=== PATIENT | male | born 1995 | race Caucasian/White ===

== ENCOUNTER 2021-12-05 17:05 | Emergency (ER) | payer OTHER, MEDICAID, SELFPAY ==
[2021-12-05 17:26] VITALS: BP 146/79; PULSE 89; RESP 16; TEMP 36.4; O2SAT 96; BMI 21.1
--- NOTE | 2021-12-05 19:29 | ED_ITS ---
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 There is a small rock that bounced up and hit him just under the left eye. He did not think anything about it. Over the next 3 days he has developed increasing erythema around the left eye with drainage from the left eye as well as increasing pain and erythema around the left ear. Does have a distant history of MRSA infection over the right thigh that had been difficult to completely clear what has been completely resolved for an extended period of time. It was Septra that and that being most effective. He describes no fevers, cough, chills. He is having no hearing change, headaches, visual change. He does not notice any headaches, abdominal pain, vomiting, diarrhea. Related Data Previous Rx's Medication Instructions Recorded clindamycin HCl 300 mg capsule 300 mg PO TID #30 caps 12/05/21 sulfamethoxazole 800 1 tab PO BID #20 tabs 12/05/21 mg-trimethoprim 160 mg tablet (Bactrim DS) Allergies Allergy/AdvReac Type Severity Reaction Status Date / Time No Known Drug Allergies Allergy Verified 12/05/21 19:56 Review of Systems Review of Systems Narrative: Remainder of complete review of systems is otherwise unremarkable except for that included in the HPI. Patient History Social History Smoking Status: Current every day smoker Smoking Status: Current every day smoker alcohol intake frequency: holidays/special occasions only Substance Use Type: does not use Exam Initial Vital Signs Initial Vital Signs: Vital Signs Temperature 97.5 F L 12/05/21 17:26 Pulse Rate 89 12/05/21 17:26 Respiratory Rate 16 12/05/21 17:26 Blood Pressure 146/79 H 12/05/21 17:26 Pulse Oximetry 96 12/05/21 17:26 Oxygen Delivery Method 12/05/21 17:26 General: Alert appropriate in no acute distress HEENT: Left eye with scleral injection and mild purulence discharge. No corneal abnormalities. Increasing redness upper and lower eyelids extending into the periorbital area. Nonpainful and complete extraocular eye movements. Left external ear is red full warm with drainage from the very outer portion of the ear canal. No obvious skin breakdown or source. No otitis media. He has minor posterior chain cervical adenopathy on the left side Respiratory: Able to speak in full sentences, no obvious respiratory distress Skin: No obvious rashes, warm and dry Neurologic: Grossly intact no obvious asymmetries or abnormalities Psych: appropriate insight and affect, cooperative Course Orders Ordered: ED Orders 12/05/21 19:26 Ear culture Stat Eye culture Stat 12/05/21 19:27 Ear culture Stat 12/05/21 19:30 Eye culture Stat Eye culture Stat Discontinued Medications Clindamycin HCl (Clindamycin 150 Mg Capsule) 300 mg PO NOW ONE Stop: 12/05/21 19:52 Trimethoprim/Sulfamethoxazole (Trimeth/Sulfa 160/800 (Ds) Tablet) 1 tab PO NOW ONE Stop: 12/05/21 19:52 Vital Signs Vital signs: Vital Signs - 8 hr 12/05/21 17:26 Temperature 97.5 F L Pulse Rate 89 Respiratory Rate 16 Blood Pressure 146/79 H Pulse Oximetry 96 Oxygen Delivery Method Room Air MDM - Head Injury Lab Data Lab results narrative: Cultures of the drainage from both the eye in the ER have been obtained and sent to the lab MDM Narrative Medical decision making narrative: 26-year-old gentleman with 3 days of increasing erythema and drainage to the left eye and the left ear. Incidental injury from a rock flying up on December 01 with no trauma and I think is completely unrelated. He appears to have a bacterial conjunctivitis with developing periorbital cellulitis with no clinical signs or symptoms of retro-orbital infection. He simultaneously has an obvious left otitis externa with minor drainage and erythema. No obvious abscess. There is no evidence of additional skin rash wounds or lesions or pain that would suggest shingles. Given his distant history of MRSA infection of the superficial right thigh will treat him with Septra, given the unusual presentation in both the eye and that year will double cover this with clindamycin. Pain is not a significant problem at this time. I do not suspect abscess or deeper infection currently. I believe he is safe for home discharge and encouraged him to return if symptoms worsen Discharge Plan Departure Patient Disposition: Home Clinical Impression: Acute bacterial conjunctivitis of left eye, Periorbital cellulitis of left eye Otitis externa Qualifiers: Otitis externa type: unspecified type Chronicity: acute Laterality: left Qualified Code(s): H60.502 - Unspecified acute noninfective otitis externa, left ear Instructions: DI for Conjunctivitis, DI for Otitis Externa Activity Restrictions/Additional Instructions: Thank you for coming in today I do not think that the rock that hit you the weed terry has anything to do with your current infections. You have a bacterial infection of your eye and around her eye.? Fortunately it does not appear to be behind her eye or involving the eye ball or the muscles of the eyeball.? You also have and infection of the external ER which is causing the drainage. I have sent cultures for both of these to make sure that I have chosen the correct antibiotics.? I am going to start you on both Septra and clindamycin.? B oth of these will cover staph infections. If you find that you are getting worse or develop any new symptoms, please feel free to return to the emergency department for further evaluation. Prescriptions: New clindamycin HCl 300 mg capsule 300 mg PO TID Qty: 30 0RF sulfamethoxazole-trimethoprim [Bactrim DS] 800-160 mg tablet 1 tab PO BID Qty: 20 0RF Referrals: Tresa David ARNP [Primary Care Provider] -
[2021-12-05] MEDS: CLINDAMYCIN 150 MG CAPSULE 300 MG PO (19:57)
[2021-12-05] MEDS: TRIMETH/SULFA 160/800 (DS) TABLET 1 TAB PO (19:59)
== END 2021-12-05 20:01 | disposition home or self-care (01) ==
PROVIDERS: Emergency Provider Emergency Medicine; PCP Nurse Practitioner Family
DX: H10.32 Unspecified acute conjunctivitis, left eye (principal); L03.213 Periorbital cellulitis; H60.502 Unspecified acute noninfective otitis externa, left ear
CPT/HCPCS: 87070; 87077; 87147; 87186; 87205; 99283